=== PATIENT | female | born 1955 | race Hispanic/Latino ===

== ENCOUNTER → 2022-10-13 | Outpatient (CLI) | payer MEDICARE | END | disposition home or self-care (01) | LOC: RAH 10:45 | PROVIDERS: ATTEND Internal Medicine | DX: M47.817 Spondylosis without myelopathy or radiculopathy, lumbosacral region (principal); M25.521 Pain in right elbow; M79.631 Pain in right forearm | CPT/HCPCS: 72110; 73070; 73090 ==

== ENCOUNTER → 2022-12-13 | Outpatient (CLI) | payer MEDICARE | END | disposition home or self-care (01) | LOC: RAH 12:47 | PROVIDERS: ATTEND Internal Medicine | DX: R19.03 Right lower quadrant abdominal swelling, mass and lump (principal) | CPT/HCPCS: 76882 ==

== ENCOUNTER → 2022-12-26 | Outpatient (CLI) | payer MEDICARE | END | disposition home or self-care (01) | LOC: LAB 12:01 | PROVIDERS: ATTEND Internal Medicine Cardiovascular Disease | DX: R00.2 Palpitations (principal) | CPT/HCPCS: 36415; 83735 ==

== ENCOUNTER → 2023-03-13 | Outpatient (CLI) | payer OTHER | END | disposition home or self-care (01) | LOC: OIH 09:10 | PROVIDERS: ATTEND Internal Medicine Cardiovascular Disease | DX: Z13.6 Encounter for screening for cardiovascular disorders (principal) | CPT/HCPCS: 75571 ==

== ENCOUNTER → 2023-06-25 | Outpatient (CLI) | payer MEDICARE | END | disposition home or self-care (01) | LOC: RAH 12:50 | PROVIDERS: ATTEND Internal Medicine | DX: Z12.31 Encounter for screening mammogram for malignant neoplasm of breast (principal); R92.333 Mammographic heterogeneous density, bilateral breasts | CPT/HCPCS: 77067 ==

== ENCOUNTER → 2024-05-05 | Outpatient (CLI) | payer MEDICARE ==
--- NOTE | 2024-05-05 10:16 | HMCIMG ---
Exam Type: KNEE 3VWS LT Clinical Information: Unilateral primary osteoarthritis, left knee Comparison: None Findings: No acute fractures or dislocations. Osteochondral lesions of the lateral aspect of the lateral femoral condyle measuring 11 mm, probably without detachment. Second osteochondral lesion is suspected involving the lateral patellar facet measuring 7 mm best seen in the lateral view. IMPRESSION: Osteochondral lesions as noted. No acute pathology.
--- NOTE | 2024-05-05 10:45 | HMCIMG ---
Exam Type: KNEE BILATERAL STANDING Clinical Information: Unilateral primary osteoarthritis, left knee Comparison: None Findings: Please note that this is an AP view only. Nondisplaced fractures and other abnormalities can be missed in the absence of a lateral film. The bone examination is unremarkable. No fractures or dislocations are seen. No radiopaque foreign bodies are noted. Soft tissues are preserved. IMPRESSION: Normal examination. Please note that this is an AP view only. Nondisplaced fractures and other abnormalities can be missed in the absence of a lateral film.
== END | disposition home or self-care (01) ==
LOC: RAH 07:58
PROVIDERS: ATTEND Physical Medicine & Rehabilitation
DX: M17.12 Unilateral primary osteoarthritis, left knee (principal)
CPT/HCPCS: 73562; 73565; 73560

== ENCOUNTER → 2024-07-31 | Outpatient (CLI) | payer MEDICARE ==
--- NOTE | 2024-07-31 09:21 | HMCIMG ---
Exam Type: MAMMO SCREENING BILATERAL Clinical Information: ANNUAL SCREENING Comparison: June 25, 2023 Technique: Mammogram with CAD was performed with CC and MLO projections. CAD shows no worrisome regions. FINDINGS: The breasts are heterogeneously dense, which may obscure small masses. No dominant mass or suspicious microcalcification identified. There is no nipple retraction or skin thickening. Benign-appearing calcifications are seen. CAD shows no worrisome regions. IMPRESSION: 1. No mammographic signs of malignancy. 2. Routine follow-up recommended. CATEGORY 2: BENIGN FINDINGS Note: A negative x-ray should not delay biopsy if a dominant or clinically suspicious mass is present, since 8-10% of cancers are not identified by mammography. Dense breasts may obscure an underlying neoplasm.
== END | disposition home or self-care (01) ==
LOC: RAH 08:23
PROVIDERS: ATTEND Internal Medicine
DX: Z12.31 Encounter for screening mammogram for malignant neoplasm of breast (principal); R92.333 Mammographic heterogeneous density, bilateral breasts
CPT/HCPCS: 77067

== ENCOUNTER → 2025-01-09 | Outpatient (CLI) | payer MEDICARE ==
--- NOTE | 2025-01-09 11:59 | HMCIMG ---
EXAM: US Retroperitoneum, Renal. CLINICAL HISTORY: UTI. TECHNIQUE: Real-time ultrasound of the retroperitoneum with image documentation. COMPARISON: None provided. FINDINGS: RIGHT KIDNEY: Measures 9.1 ??? 5.1 ??? 4.8 cm. Normal size and contour. No renal mass or calculus. No hydronephrosis. LEFT KIDNEY: Measures 9.1 ??? 5.2 ??? 4.6 cm. Normal size and contour. No renal mass or calculus. No hydronephrosis. BLADDER: Wall thickness 3 mm. No echogenic debris. Unremarkable as visualized. MISCELLANEOUS: No other significant abnormality evident. IMPRESSION: 1. No sonographic evidence of urinary tract infection. 2. No acute abnormality. /Magee
== END | disposition home or self-care (01) ==
LOC: RAH 07:00
PROVIDERS: ATTEND Urology
DX: N39.0 Urinary tract infection, site not specified (principal)
CPT/HCPCS: 76770